=== PATIENT | female | born 1955 | race Two or more races ===

== ENCOUNTER 2023-05-29 08:53 | Emergency (ER) | payer OTHER ==
[~2023-05-29] VITALS: Ht 162.6 cm; Wt 52.6 kg
[2023-05-29] MEDS ORDERED: ASPIRIN81 MG PO (09:24)
[2023-05-29] MEDS ORDERED: CRESTOR5 MG (09:24)
== END 2023-05-29 16:13 | disposition home or self-care (01) ==
LOC: ER 08:54
DX: S52.571A Other intraarticular fracture of lower end of right radius, initial encounter for closed fracture (principal); S09.8XXA Other specified injuries of head, initial encounter; W18.39XA Other fall on same level, initial encounter; Y93.89 Activity, other specified; Y92.59 Other trade areas as the place of occurrence of the external cause; E75.6 Lipid storage disorder, unspecified